=== PATIENT | male | born 1965 | race Caucasian/White ===

== ENCOUNTER 2020-03-23 16:32 | Inpatient (IN) ==
[2020-03-23] MEDS ORDERED: Ondansetron 4 MG/2 ML VIAL IVP PRN (19:12)
[2020-03-23] MEDS ORDERED: Naloxone 0.4 MG/ML INJ IVP PRN (19:12)
[2020-03-23] MEDS ORDERED: 0.9 % Sodium Chloride 250 ML IVC SCH (19:15)
[2020-03-23 21:04] LABS: Hematocrit 19.2 % (37.5-50.1)
[2020-03-23] MEDS: Pantoprazole 40 MG in 0.9 % Sodium Chloride Mini Bag 100 ML IVC SCH (21:10)
[2020-03-23 21:23] LABS: Hemoglobin 5.6 g/dL (12.9-16.9)
[2020-03-23] MEDS: Ipratropium/Albuterol Neb 3 ML IH SCH (23:31)
[2020-03-24] MEDS ORDERED: Ampicillin/Sulbactam 3,000 MG in 0.9 % Sodium Chloride Mini Bag 100 ML IVPB SCH
[2020-03-24] MEDS: Pantoprazole 40 MG in 0.9 % Sodium Chloride Mini Bag 100 ML IVC SCH ×2 (01:54→07:30)
[2020-03-24] MEDS: Ipratropium/Albuterol Neb 3 ML IH SCH (04:01)
[2020-03-24 06:42] LABS: Basophils # 0.1 K/mcL (0.0-0.2); Basophils % 0.6 %; Eosinophils # 0.2 K/mcL (0.0-0.6); Eosinophils % 1.4 %; Hematocrit 20.4 % (37.5-50.1); Hemoglobin 6.1 g/dL (12.9-16.9); Immature Granulocytes % 1.2 % (0-4); Lymphocytes # 1.5 K/mcL (0.6-4.6); Mean Corpuscular HGB Conc 29.9 g/dL (31.6-35.5); Mean Corpuscular Hemoglobin 23.1 pg (28.0-33.3); Mean Corpuscular Volume 77.3 fL (83.0-100.0); Monocytes # 0.8 K/mcL (0.0-1.3); Monocytes % 7.2 %; Neutrophils # 8.1 K/mcL (1.6-8.9); Nucleated Red Blood Cells 1.9 /100 WBC (0); Platelet Count 228 K/mcL (140-400); Red Blood Count 2.64 M/mcL (4.19-5.50); Red Cell Distribution Width 22.2 % (11.5-14.5); Segmented Neutrophils % 75.6 %; White Blood Count 10.8 K/mcL (4.3-11.1)
[2020-03-24 06:43] LABS: INR 1.8; Prothrombin Time 20.8 Seconds (9.4-12.1)
[2020-03-24 06:46] LABS: Activated Partial Thrombo Time 32.2 Seconds (26.0-36.0)
[2020-03-24 06:49] LABS: BUN/Creatinine Ratio 25 (6-26); Blood Urea Nitrogen 24 mg/dL (6-20); Calcium 7.7 mg/dL (8.6-10.3); Carbon Dioxide 23 mEq/L (23-29); Chloride 108 mEq/L (98-107); Glucose 111 mg/dL (70-105); Osmolality,Calculated 291 (280-300); Potassium 3.7 mEq/L (3.5-5.1); Sodium 138 mEq/L (136-145); eGFR For African Americans > 60 (> 60); eGFR For Non-African Americans > 60 (> 60)
[2020-03-24 06:50] LABS: % Iron Saturation 5 % (20-55); Iron 25 mcg/dL (65-175); Transferrin 330 mg/dL (203-362)
[2020-03-24] MEDS ORDERED: cefTRIAXone 1,000 MG in Water for inj. (sterile) 10 ML IVP SCH (09:00)
[2020-03-24 10:06] VITALS: BP 128/62
[2020-03-24] MEDS ORDERED: Naloxone 0.4 MG/ML INJ IVP PRN (10:53)
[2020-03-24] MEDS ORDERED: Pantoprazole 40 MG in 0.9 % Sodium Chloride Mini Bag 100 ML IVC SCH (10:53)
[2020-03-24] MEDS ORDERED: Ondansetron 4 MG/2 ML VIAL IVP PRN (10:53)
[2020-03-24] MEDS ORDERED: Ipratropium/Albuterol Neb 3 ML IH SCH (11:00)
[2020-03-24] MEDS ORDERED: Albuterol 2.5 MG/3 ML NEBULIZER IH SCH (15:00)
[2020-03-25] MEDS ORDERED: Fenofibrate 54 MG TABLET PO SCH (09:00)
[2020-03-25] MEDS ORDERED: cefTRIAXone 1,000 MG in Water for inj. (sterile) 10 ML IVP SCH (09:00)
[2020-03-25] MEDS ORDERED: Ascorbic Acid 500 MG TABLET PO SCH (09:00)
[2020-03-25] MEDS ORDERED: hydroCHLOROthiazide 25 MG TABLET PO SCH (09:00)
[2020-03-25] MEDS ORDERED: Loratadine 10 MG TABLET PO SCH (09:00)
[2020-03-25] MEDS ORDERED: NON-FORMULARY MEDICATION 1 EACH EACH (Ezetimibe [Zetia] 10 MG) PO SCH (09:00)
[2020-03-25] MEDS ORDERED: amLODIPine 5 MG TABLET PO SCH (09:00)
== END 2020-03-24 11:24 | disposition left against medical advice (07) | DRG 253 ==
LOC: CDU
PROVIDERS: ADMIT Internal Medicine; ATTEND Nurse Practitioner Acute Care